=== PATIENT | male | born 1990 | race Caucasian/White ===

== ENCOUNTER 2023-01-18 14:38 | Inpatient (IN) | payer MEDICAID, OTHER ==
[~2023-01-18] VITALS: Ht 177.8 cm; Wt 62.5 kg
[2023-01-18] MEDS ORDERED: CLINDAMYCIN 600MG IV 50 ML IV ONE (16:45)
[2023-01-18] MEDS ORDERED: AMPICILLIN & SULBACTAM SODIUM 3 GM in SODIUM CHL 0.9% 100 ML IV SCH (17:00)
[2023-01-18 17:10] LABS: Basophils # (auto) 0.1 10 ^3/uL (0-0.2); Basophils % (auto) 0.4 % (0.0-2.0); Eosinophils # (auto) 0.4 10 ^3/uL (0-0.8); Eosinophils % (auto) 3.1 % (0.0-7.0); Hematocrit 48.4 % (41.0-53.0); Hemoglobin 16.2 g/dL (13.5-17.5); Lymphocytes # (auto) 1.8 10 ^3/uL (0.4-5.4); Lymphocytes % (auto) 13.5 % (10.0-50.0); Mean Corpuscular Hemoglobin 31.3 pg (28.0-32.0); Mean Corpuscular Hgb Conc. 33.5 g/dL (32.0-36.0); Mean Corpuscular Volume 93.5 fL (80.0-100.0); Monocytes # (auto) 1.7 10 ^3/uL (0-1.3); Monocytes % (auto) 12.6 % (0.0-12.0); Neutrophils # (auto) 9.3 10 ^3/uL (1.6-8.6); Neutrophils % (auto) 70.4 % (37.0-80.0); Red Blood Cells 5.18 10^6/uL (4.5-5.90); Red Cell Distribution Width 13.7 % (11.8-14.3); White Blood Cell 13.3 10^3/uL (4.4-10.8)
[2023-01-18] MEDS ORDERED: HYDROmorphone HCL 2 MG/ML VL/or syr IM ONE (17:15)
[2023-01-18 17:26] LABS: Albumin 3.9 g/dL (3.4-5.0); BUN/Creatinine Ratio 11.3 (10.0-20.0); Calcium 9.3 mg/dL (8.5-10.1); Potassium 4.2 mmol/L (3.5-5.1)
[2023-01-18 17:29] LABS: Bilirubin, Total 0.3 mg/dL (0.2-1.0); Total Protein 7.4 g/dL (6.4-8.2)
[2023-01-18] MEDS: PIPERACILLIN-TAZO 4.5GM 100 ML IV SCH (23:14)
[2023-01-19] MEDS: KETOROLAC TROMETH 30 MG/ML 1ML VIAL IV PRN ×2 (00:15→05:08)
[2023-01-19] MEDS: ACETAMINOPHEN 325 MG TAB PO PRN (01:13)
[2023-01-19 05:00] VITALS: BP 117/68
[2023-01-19] MEDS: PIPERACILLIN-TAZO 4.5GM 100 ML IV SCH ×3 (05:00→22:22)
[2023-01-19] MEDS ORDERED: ALBU108A5 IN (06:28)
[2023-01-19 08:53] VITALS: BP 115/85
[2023-01-19 12:40] VITALS: BP 105/65
[2023-01-19 16:54] VITALS: BP 108/65
[2023-01-19] MEDS: HYDROcodone-ACET 10/325MG TAB PO PRN (22:22)
[2023-01-19] MEDS ORDERED: CLINDAMYCIN 300MG IV 50 ML IV ONE (22:45)
[2023-01-19 23:00] VITALS: BP 115/73
[2023-01-20 04:38] VITALS: BP 116/69
[2023-01-20] MEDS: CLINDAMYCIN 300MG IV 50 ML IV SCH ×2 (05:53→14:00)
[2023-01-20 06:43] LABS: Basophils # (auto) 0 10 ^3/uL (0-0.2); Basophils % (auto) 0.5 % (0.0-2.0); Eosinophils # (auto) 0.7 10 ^3/uL (0-0.8); Eosinophils % (auto) 8.4 % (0.0-7.0); Hematocrit 45.1 % (41.0-53.0); Hemoglobin 15.6 g/dL (13.5-17.5); Lymphocytes # (auto) 3.2 10 ^3/uL (0.4-5.4); Lymphocytes % (auto) 40.5 % (10.0-50.0); Mean Corpuscular Hemoglobin 31.9 pg (28.0-32.0); Mean Corpuscular Hgb Conc. 34.6 g/dL (32.0-36.0); Mean Corpuscular Volume 92.3 fL (80.0-100.0); Monocytes # (auto) 1.3 10 ^3/uL (0-1.3); Neutrophils # (auto) 2.7 10 ^3/uL (1.6-8.6); Neutrophils % (auto) 34.6 % (37.0-80.0); Red Blood Cells 4.89 10^6/uL (4.5-5.90); Red Cell Distribution Width 13.6 % (11.8-14.3); White Blood Cell 7.9 10^3/uL (4.4-10.8)
[2023-01-20 06:53] LABS: Albumin 2.9 g/dL (3.4-5.0); Calcium 8.6 mg/dL (8.5-10.1); Potassium 3.6 mmol/L (3.5-5.1)
[2023-01-20 06:55] LABS: BUN/Creatinine Ratio 9.3 (10.0-20.0)
[2023-01-20 07:16] LABS: Bilirubin, Total 0.3 mg/dL (0.2-1.0); Total Protein 6.5 g/dL (6.4-8.2)
[2023-01-20 08:00] VITALS: BP 114/75
[2023-01-20 09:00] VITALS: BP 114/75
[2023-01-20] MEDS: HYDROcodone-ACET 10/325MG TAB PO PRN (10:58)
[2023-01-20 13:00] VITALS: BP 104/71
[2023-01-20] MEDS: PIPERACILLIN-TAZO 4.5GM 100 ML IV SCH (14:27)
[2023-01-20] MEDS ORDERED: CLINDAMYCIN HCL 150 MG CAP PO ONE (15:15)
[2023-01-20] MEDS: ACETAMINOPHEN 325 MG TAB PO PRN (16:15)
[2023-01-20 17:00] VITALS: BP 110/73
[2023-01-20 17:07] VITALS: BP 114/75
[2023-01-20] MEDS ORDERED: CLINDAMYCIN HCL 150 MG CAP PO SCH (22:00)
== END 2023-01-20 17:30 | disposition home or self-care (01) | DRG 383 ==
LOC: ER 14:38 → OVERFLOW 17:19 → TELE-WESTW 22:08 → WEST WING 22:14
PROVIDERS: ADMIT Internal Medicine Cardiovascular Disease; ATTEND Internal Medicine
DX: L03.211 Cellulitis of face (principal); J32.9 Chronic sinusitis, unspecified; K02.9 Dental caries, unspecified; K04.7 Periapical abscess without sinus; Z82.49 Family history of ischemic heart disease and other diseases of the circulatory system; Z83.3 Family history of diabetes mellitus
CPT/HCPCS: 36415; 70486; 80053; 83036; 83605; 85025; 87040; 96372; G0378; J1885; J2543; J3490